=== PATIENT | female | born 1965 | race Hispanic/Latino ===

== ENCOUNTER 2019-07-31 14:06 | Emergency (ER) | payer MEDICARE ==
[~2019-07-31 14:06] MED LIST: CEFD300C3 PO; FERR325T22 PO; INSLAN SQ; INSU500V SQ; LISI40TA4 PO; PANT40TA25 PO; SUCR1ORA15 PO
[2019-07-31 14:50] LABS: INR 0.89 (0.85-1.15); PARTIAL THROMBOPLASTIN TIME 22.4 SEC (26.3-35.5); PROTHROMBIN TIME 9.4 SEC (9.6-11.6)
[2019-07-31 14:54] LABS: BASOPHILS % (AUTO) 0.7 % (0.0-5.0); EOSINOPHILS % (AUTO) 1.4 % (0.0-8.0); LYMPHOCYTES % (AUTO) 48.6 % (21.0-51.0); MEAN CORPUSCULAR HEMOGLOBIN 31.6 pg (27.0-33.0); MEAN CORPUSCULAR HGB CONC 33.3 g/dL (32.0-36.0); MEAN CORPUSCULAR VOLUME 94.7 fL (79-99); MONOCYTES % (AUTO) 9.1 % (3.0-13.0); PLATELET COUNT (AUTO) 338 K/uL (130-400); RED BLOOD CELL COUNT(AUTO) 4.12 MIL/uL (4.00-5.50); RED CELL DISTRIBUTION WIDTH 16.2 % (11.0-15.5); WHITE BLOOD COUNT (AUTO) 9.5 K/uL (4.8-10.8)
[2019-07-31 14:57] LABS: CREATININE 0.8 mg/dL (0.5-1.5); POTASSIUM 4.5 mmol/L (3.5-5.1)
[2019-07-31 15:00] LABS: APPEARANCE,URINE Clear (CLEAR); BILIRUBIN,URINE Negative (NEGATIVE); COLOR,URINE Yellow (YELLOW); GLUCOSE, URINE (UA) >=1000 mg/dL (NEGATIVE); KETONES,URINE Negative (NEGATIVE); LEUKOCYTE ESTERASE ,URINE Negative (NEGATIVE); NITRATE,URINE Negative (NEGATIVE); OCCULT BLOOD,URINE Small (NEGATIVE); PH,URINE 6.5 (5.0-8.0); PROTEIN,URINE Negative (NEGATIVE); UROBILINOGEN,URINE 0.2 mg/dL (0.2-1.0)
[2019-07-31 15:06] LABS: ALBUMIN 3.8 g/dL (3.5-5.0); BILIRUBIN,TOTAL 0.6 mg/dL (0.2-1.0); TOTAL PROTEIN, SERUM 8.3 g/dL (6.0-8.3)
[2019-07-31 15:11] LABS: BACTERIA,URINE Rare /HPF (None Seen); MUCUS,URINE Few LPF (None Seen); SQUAMOUS EPITHELIAL CELL,UR Few /HPF (0-2)
[2019-07-31 15:23] LABS: AMYLASE 59 U/L (25-115); CREATINE KINASE, TOTAL 88 U/L (21-232)
[2019-07-31] MEDS ORDERED: TRAMADOL HCL 50 MG TABLET ONE (16:37)
[2019-07-31] MEDS ORDERED: TAMSULOSIN HCL 0.4 MG CAP.ER.24H ONE (16:37)
[2019-07-31] MEDS ORDERED: KETOROLAC TROMETHAMINE 30MG/ML ONE (16:37)
[2019-07-31] MEDS ORDERED: SODIUM CHLORIDE 0.9% 1000ML 1,000 ML IV ONE (16:38)
== END 2019-07-31 18:07 | disposition home or self-care (01) ==
LOC: EDH 14:06
DX: N20.1 Calculus of ureter (principal); E11.65 Type 2 diabetes mellitus with hyperglycemia; I10 Essential (primary) hypertension; Z98.890 Other specified postprocedural states
CPT/HCPCS: 36415; 71045; 74176; 80053; 81001; 82150; 82550; 83690; 84484; 85025; 85610; 85730; 93005; 96361; 96374; 99285; J1885; J7030

== ENCOUNTER 2020-01-20 00:29 | Inpatient (IN) | payer MEDICARE ==
[~2020-01-20] VITALS: Ht 149.9 cm; Wt 52.9 kg
[~2020-01-20 00:29] MED LIST changes: -PANT40TA25 PO; +PANT40TA55 PO
[2020-01-20] MEDS ORDERED: ACETAMINOPHEN EXTRA STRENGTH 500 MG TABLET ONE (01:10)
[2020-01-20] MEDS ORDERED: ONDANSETRON HCL 4 MG/2 ML VIAL ONE (01:10)
[2020-01-20 01:16] LABS: BASOPHILS % (AUTO) 0.7 % (0.0-5.0); HEMATOCRIT 42.1 % (36-48); LYMPHOCYTES % (AUTO) 7.6 % (21.0-51.0); MEAN CORPUSCULAR HEMOGLOBIN 33.2 pg (27.0-33.0); MEAN CORPUSCULAR VOLUME 97.7 fL (79-99); MONOCYTES % (AUTO) 9.6 % (3.0-13.0); NEUTROPHILS % (AUTO) 81.2 % (40.0-77.0); NUCLEATED RED BLOOD CELLS 0.8 % (0.0-0.19); PLATELET COUNT (AUTO) 126 K/uL (130-400); RED BLOOD CELL COUNT(AUTO) 4.31 MIL/uL (4.00-5.50); RED CELL DISTRIBUTION WIDTH 12.6 % (11.0-15.5); WHITE BLOOD COUNT (AUTO) 22.8 K/uL (4.8-10.8)
[2020-01-20 01:25] LABS: INR 0.88 (0.85-1.15); PROTHROMBIN TIME 9.6 SEC (9.6-11.6)
[2020-01-20 01:36] LABS: ABG BASE EXCESS -13.7 mmol/L (-2.0-3.0); ABG HCO3 9.6 mmol/L (21.0-28.0); ABG OXYGEN SATURATION 96.3 % (95.0-99.0); ABG PCO2 19 mmHg (32-45)
[2020-01-20 02:13] LABS: ALBUMIN 1.9 g/dL (3.5-5.0); BILIRUBIN,TOTAL 0.7 mg/dL (0.2-1.0); CREATININE 1.1 mg/dL (0.5-1.5); TOTAL PROTEIN, SERUM 6.4 g/dL (6.0-8.3)
[2020-01-20] MEDS ORDERED: SODIUM BICARB 50MEQ 50ML VIAL ONE ×2 (02:24→04:49)
[2020-01-20] MEDS ORDERED: METOCLOPRAMIDE 10 MG/2 ML VIAL ONE (02:31)
[2020-01-20] MEDS ORDERED: ZOSYN 3.375GM+NS 50ML 50 ML IV ONE (02:36)
[2020-01-20] MEDS ORDERED: SODIUM CHLORIDE 0.9% 100 ML IV ONE (02:37)
[2020-01-20 02:39] LABS: APPEARANCE,URINE Clear (CLEAR); BILIRUBIN,URINE Negative (NEGATIVE); COLOR,URINE Yellow (YELLOW); GLUCOSE, URINE (UA) >=1000 mg/dL (NEGATIVE); KETONES,URINE >=160 mg/dL (NEGATIVE); LEUKOCYTE ESTERASE ,URINE Small (NEGATIVE); NITRATE,URINE Negative (NEGATIVE); OCCULT BLOOD,URINE Small (NEGATIVE); PH,URINE 5.5 (5.0-8.0); PROTEIN,URINE POS 1+ mg/dL (NEGATIVE)
[2020-01-20] MEDS ORDERED: INSULIN HUMULIN R 100 UNIT/ML 3ML ONE (02:39)
[2020-01-20] MEDS ORDERED: IOHEXOL-350 75 ML VIAL IV ONE (02:49)
[2020-01-20 03:02] LABS: BACTERIA,URINE Many /HPF (None Seen); MUCUS,URINE Rare LPF (None Seen); RBC,URINE 0-1 /HPF (0-1); SQUAMOUS EPITHELIAL CELL,UR 0-2 /HPF (0-2)
[2020-01-20] MEDS ORDERED: SODIUM CHLORIDE 0.9% 50 ML IV ONE ×2 (05:04→20:51)
[2020-01-20 05:24] LABS: ABG BASE EXCESS -11.3 mmol/L (-2.0-3.0); ABG HCO3 12.2 mmol/L (21.0-28.0); ABG OXYGEN SATURATION 94.1 % (95.0-99.0); ABG PCO2 23 mmHg (32-45)
[2020-01-20 05:51] LABS: CREATININE 1.5 mg/dL (0.5-1.5); POTASSIUM 3.8 mmol/L (3.5-5.1)
[2020-01-20 05:53] LABS: BILIRUBIN,TOTAL 0.8 mg/dL (0.2-1.0); TOTAL PROTEIN, SERUM 6.9 g/dL (6.0-8.3)
[2020-01-20] MEDS ORDERED: ONDANSETRON HCL 4 MG/2 ML VIAL IV PRN (06:00)
[2020-01-20] MEDS: CEFTRIAXONE SODIUM 1 GM IVP SCH ×2 (07:15→19:15)
[2020-01-20] MEDS ORDERED: DEXTROSE 5 %-0.45 % NACL 1,000 ML IV ONE (08:23)
[2020-01-20] MEDS: FAMOTIDINE/PF 20 MG/2 ML VIAL IV SCH ×2 (09:00→21:00)
[2020-01-20] MEDS ORDERED: D5W-1/2 NS/20MEQ KCL 1,000 ML IV SCH (09:45)
[2020-01-20 10:06] LABS: CREATININE 1.2 mg/dL (0.5-1.5); POTASSIUM 3.4 mmol/L (3.5-5.1)
[2020-01-20] MEDS ORDERED: FAMOTIDINE/PF 20 MG/2 ML VIAL IV ONE (16:32)
[2020-01-20 18:53] LABS: CREATININE 0.9 mg/dL (0.5-1.5)
[2020-01-20] MEDS ORDERED: CEFTRIAXONE SODIUM 1 GM ONE (20:49)
[2020-01-20] MEDS ORDERED: ACETAMINOPHEN 325 MG TAB ONE (21:20)
[2020-01-21] MEDS ORDERED: POTASSIUM CHLORIDE 20MEQ/100ML 100 ML IV ONE ×2 (01:33→12:11)
[2020-01-21 02:51] LABS: CREATININE 0.8 mg/dL (0.5-1.5)
[2020-01-21] MEDS: CEFTRIAXONE SODIUM 1 GM IVP SCH ×2 (07:15→19:15)
[2020-01-21 07:22] LABS: CREATININE 0.8 mg/dL (0.5-1.5); POTASSIUM 4.1 mmol/L (3.5-5.1)
[2020-01-21] MEDS: FAMOTIDINE/PF 20 MG/2 ML VIAL IV SCH ×2 (09:00→21:00)
[2020-01-21] MEDS ORDERED: CEFTRIAXONE SODIUM 1 GM ONE ×2 (09:27→21:39)
[2020-01-21] MEDS ORDERED: SODIUM CHLORIDE 0.9% 100 ML IV ONE (09:28)
[2020-01-21] MEDS ORDERED: DEXTROSE 5 %-0.45 % NACL 1,000 ML IV ONE (12:07)
[2020-01-21] MEDS: DEXTROSE 5%-LACTATED RINGERS 1,000 ML IV SCH ×2 (12:45→19:25)
[2020-01-21 13:18] LABS: ABG BASE EXCESS -7.3 mmol/L (-2.0-3.0); ABG HCO3 14.5 mmol/L (21.0-28.0); ABG OXYGEN SATURATION 96.7 % (95.0-99.0); ABG PCO2 22 mmHg (32-45)
[2020-01-21 13:19] LABS: BASOPHILS % (AUTO) 0.3 % (0.0-5.0); EOSINOPHILS % (AUTO) 0.1 % (0.0-8.0); HEMATOCRIT 32.4 % (36-48); LYMPHOCYTES % (AUTO) 8.7 % (21.0-51.0); MEAN CORPUSCULAR HEMOGLOBIN 32.4 pg (27.0-33.0); MEAN CORPUSCULAR HGB CONC 33.6 g/dL (32.0-36.0); MEAN CORPUSCULAR VOLUME 96.4 fL (79-99); MONOCYTES % (AUTO) 8.2 % (3.0-13.0); NEUTROPHILS % (AUTO) 81.7 % (40.0-77.0); NUCLEATED RED BLOOD CELLS 0.6 % (0.0-0.19); PLATELET COUNT (AUTO) 111 K/uL (130-400); RED BLOOD CELL COUNT(AUTO) 3.36 MIL/uL (4.00-5.50); RED CELL DISTRIBUTION WIDTH 13.2 % (11.0-15.5); WHITE BLOOD COUNT (AUTO) 23.3 K/uL (4.8-10.8)
[2020-01-21] MEDS ORDERED: DEXTROSE 5%-LACTATED RINGERS 1,000 ML IV ONE (15:20)
[2020-01-21] MEDS ORDERED: ZOSYN 3.375GM+NS 50ML 50 ML IV ONE (15:27)
--- NOTE | 2020-01-21 17:03 | NUR ---
INITIAL SW spoke to patient's son, Sonny Pratt, [phone]. Patient lives with son and daughter. She has no home health but has [facility] with [facility] 28 hours a week. Son is provider. DME: glucometer(uses insulin), BPM, shower chair. Patient needs help with ADL's and does not drive. Family assists. PCP is Dr. Smith Hameed. Pharmacy is [facility] in [place]. DCP is home. Addendum: 01/21/20 at 1705 by NEDA RAJAN SS Amended: Links added.
[2020-01-21 20:19] LABS: CREATININE 0.9 mg/dL (0.5-1.5); POTASSIUM 3.6 mmol/L (3.5-5.1)
[2020-01-21] MEDS: ZOSYN 3.375GM+NS 50ML 50 ML IV SCH (21:00)
[2020-01-21] MEDS ORDERED: ACETAMINOPHEN 325 MG TAB ONE (21:39)
[2020-01-21] MEDS ORDERED: FAMOTIDINE/PF 20 MG/2 ML VIAL IV ONE (21:40)
[2020-01-21] MEDS ORDERED: SODIUM CHLORIDE 0.9% 50 ML IV ONE (21:42)
[2020-01-22] VITALS (7 sets, daily range): BP systolic 122–135; BP diastolic 54–68
--- NOTE | 2020-01-22 00:30 | NUR ---
pt states she is anxious about getting covid ,and that is all she thinks all day she wants something for sleep pt states she has not slept in 3 days and that if she gets something for sleep, her sugars will be controlled dr. rojas pagenicole
[2020-01-22 01:06] LABS: POTASSIUM 3.1 mmol/L (3.5-5.1)
[2020-01-22] MEDS ORDERED: POTASSIUM CHLORIDE 10MEQ/100ML 100 ML IV ONE (01:39)
[2020-01-22] MEDS ORDERED: POTASSIUM CHLORIDE 20MEQ/100ML 100 ML IV ONE (01:39)
[2020-01-22] MEDS ORDERED: DEXTROSE 5%-LACTATED RINGERS 1,000 ML IV ONE (01:49)
[2020-01-22] MEDS: DEXTROSE 5%-LACTATED RINGERS 1,000 ML IV SCH ×4 (02:05→22:05)
[2020-01-22] MEDS: ZOSYN 3.375GM+NS 50ML 50 ML IV SCH ×3 (05:00→22:45)
[2020-01-22 05:54] LABS: BASOPHILS % (AUTO) 0.3 % (0.0-5.0); EOSINOPHILS % (AUTO) 0.2 % (0.0-8.0); LYMPHOCYTES % (AUTO) 8.3 % (21.0-51.0); MEAN CORPUSCULAR HEMOGLOBIN 33.2 pg (27.0-33.0); MEAN CORPUSCULAR HGB CONC 35.1 g/dL (32.0-36.0); MEAN CORPUSCULAR VOLUME 94.6 fL (79-99); MONOCYTES % (AUTO) 7.4 % (3.0-13.0); NUCLEATED RED BLOOD CELLS 0.3 % (0.0-0.19); PLATELET COUNT (AUTO) 148 K/uL (130-400); RED BLOOD CELL COUNT(AUTO) 3.91 MIL/uL (4.00-5.50); RED CELL DISTRIBUTION WIDTH 13.5 % (11.0-15.5); WHITE BLOOD COUNT (AUTO) 24.6 K/uL (4.8-10.8)
[2020-01-22] MEDS: CEFTRIAXONE SODIUM 1 GM IVP SCH ×2 (07:15→22:37)
[2020-01-22 08:46] LABS: BILIRUBIN,TOTAL 0.6 mg/dL (0.2-1.0); POTASSIUM 4.2 mmol/L (3.5-5.1)
[2020-01-22] MEDS: FAMOTIDINE/PF 20 MG/2 ML VIAL IV SCH ×2 (09:00→22:37)
[2020-01-22 09:08] LABS: ALBUMIN 1.4 g/dL (3.5-5.0); CREATININE 0.7 mg/dL (0.5-1.5)
[2020-01-22] MEDS ORDERED: CEFTRIAXONE SODIUM 1 GM ONE (09:42)
[2020-01-22] MEDS ORDERED: FAMOTIDINE/PF 20 MG/2 ML VIAL IV ONE (09:43)
[2020-01-22 10:41] LABS: ABG BASE EXCESS -6.4 mmol/L (-2.0-3.0); ABG HCO3 15.3 mmol/L (21.0-28.0); ABG OXYGEN SATURATION 97.9 % (95.0-99.0); ABG PCO2 23 mmHg (32-45)
[2020-01-22] MEDS ORDERED: INSLAN SQ (11:15)
[2020-01-22] MEDS: 1/2 NORMAL SALINE + 20 MEQ KCL 1,000 ML IV SCH ×2 (11:15→21:15)
[2020-01-22] MEDS ORDERED: POTASSIUM CHLORIDE 10MEQ/100ML 100 ML IV PRN (11:30)
[2020-01-22 12:16] LABS: ALBUMIN 1.6 g/dL (3.5-5.0); BILIRUBIN,TOTAL 0.5 mg/dL (0.2-1.0); CREATININE 0.8 mg/dL (0.5-1.5); POTASSIUM 3.9 mmol/L (3.5-5.1); TOTAL PROTEIN, SERUM 5.8 g/dL (6.0-8.3)
--- NOTE | 2020-01-22 12:57 | NUR ---
PT WAS RECEIVED IN ROOM 1-B VIA STRETCHER FROM ER. PT IS AWAKE ALERT AND ORIENTED. AT PRESENT PT WAS CONNECTED TO [employer] AND REQUESTING SOMETHING TO EAT, PT WAS ADVISED THAT PATIENTS WITH DKA WERE NOT USUALLY FED. WILL AWAIT TO SEE HER ORDERS.
[2020-01-22 13:07] LABS: CREATININE 0.9 mg/dL (0.5-1.5); MAGNESIUM 1.9 mg/dL (1.80-2.40); POTASSIUM 3.5 mmol/L (3.5-5.1)
--- NOTE | 2020-01-22 13:30 | NUR ---
CARLY ROGER, DR. MCKEON, AND Cristo GEE WITH NURSE PRACTITIONERS MINH AND RACHEL, HAVE SEEN PATIENT AND ORDERS NOTED. PT STATES THAT SHE DIDN'T REALIZE THAT SO MANY DOCTORS WERE ON HER CASE. ORDERS WERE ADVISED TO PHYSICIANS AND WILL AWAIT FOR FURTHER ORDERS.
[2020-01-22] MEDS ORDERED: INSULIN GLARGINE 100 UNITS/ML 10 ML VIAL SQ ONE (15:55)
[2020-01-22] MEDS: INSULIN HUMULIN R 100 UNIT/ML 3ML SQ SCH ×2 (16:44→23:22)
[2020-01-22 16:46] LABS: CREATININE 0.9 mg/dL (0.5-1.5); MAGNESIUM 1.8 mg/dL (1.80-2.40); POTASSIUM 3.6 mmol/L (3.5-5.1)
--- NOTE | 2020-01-22 16:57 | NUR ---
PT HAD A HIGH BLOOD SUGAR AND WAS GIVEN INSULIN PER SLIDING SCALE ORDERED PER DR. LAUGHLIN AND THE ALREADY SCHEDULES INSULIN DOSE.
[2020-01-22] MEDS ORDERED: INSULIN HUMULIN R 100 UNIT/ML 3ML SQ SCH (17:00)
[2020-01-22 17:48] LABS: ABG BASE EXCESS -5.6 mmol/L (-2.0-3.0); ABG HCO3 16.1 mmol/L (21.0-28.0); ABG OXYGEN SATURATION 97.3 % (95.0-99.0); ABG PCO2 24 mmHg (32-45)
[2020-01-22] MEDS ORDERED: INSULIN GLARGINE 100 UNITS/ML 10 ML VIAL SQ SCH (18:30)
[2020-01-22] MEDS ORDERED: LIDOCAINE HCL-MPF 1% 2ML VIAL IV PRN (21:00)
[2020-01-22] MEDS ORDERED: MAGNESIUM 2GM PREMIX 50ML 50 ML IV PRN (21:00)
[2020-01-22] MEDS ORDERED: GLUCAGON 1MG KIT 1 MG ML IM PRN (21:00)
[2020-01-22] MEDS ORDERED: DEXTROSE 50%-WATER 50 ML DISP.SYRIN IV PRN (21:00)
[2020-01-22] MEDS ORDERED: POTASSIUM CHLORIDE 10% ELIXIR 20 MEQ/15 ML UDCUP PO PRN (21:00)
[2020-01-22] MEDS ORDERED: POTASSIUM CHLORIDE 20MEQ/100ML 100 ML IV PRN (21:00)
--- NOTE | 2020-01-22 21:00 | NUR ---
DOWNGRADE SPOKE TO DR SILVA UPDATED ON PATIENT CONDITION PT NO LONGER ON INSULIN DRIP AND TOLERATING PO AND ON SQ PER ENDOCRINOLOGY. ORDERS FOR POTASSIUM AND MAGNESIUM PROTOCOL. PATIENT DOWNGRADED TO MED/TELE STATUS
--- NOTE | 2020-01-22 23:40 | NUR ---
REPORT REPORT GIVEN TO RD MADERA
[2020-01-23] VITALS (9 sets, daily range): BP systolic 109–148; BP diastolic 53–77
[2020-01-23] MEDS: LORAZEPAM 1 MG TABLET PO PRN ×2 (01:25→21:33)
[2020-01-23 05:32] LABS: ABG HCO3 19.7 mmol/L (21.0-28.0); ABG OXYGEN SATURATION 97.2 % (95.0-99.0); ABG PCO2 27 mmHg (32-45)
[2020-01-23] MEDS: CEFTRIAXONE SODIUM 1 GM IVP SCH (06:06)
[2020-01-23] MEDS: ZOSYN 3.375GM+NS 50ML 50 ML IV SCH (06:06)
[2020-01-23] MEDS: INSULIN HUMULIN R 100 UNIT/ML 3ML SQ SCH ×7 (06:07→20:01)
[2020-01-23 06:23] LABS: HEMATOCRIT 31.8 % (36-48); MEAN CORPUSCULAR HEMOGLOBIN 32.7 pg (27.0-33.0); MEAN CORPUSCULAR HGB CONC 35.5 g/dL (32.0-36.0); MEAN CORPUSCULAR VOLUME 91.9 fL (79-99); NUCLEATED RED BLOOD CELLS 0.2 % (0.0-0.19); RED BLOOD CELL COUNT(AUTO) 3.46 MIL/uL (4.00-5.50); RED CELL DISTRIBUTION WIDTH 12.8 % (11.0-15.5); WHITE BLOOD COUNT (AUTO) 19.3 K/uL (4.8-10.8)
[2020-01-23 06:56] LABS: ALBUMIN 1.7 g/dL (3.5-5.0); BILIRUBIN,TOTAL 0.5 mg/dL (0.2-1.0); CREATININE 0.9 mg/dL (0.5-1.5); MAGNESIUM 1.8 mg/dL (1.80-2.40); PHOSPHORUS 2.4 mg/dL (2.5-4.9); POTASSIUM 3.2 mmol/L (3.5-5.1); THYROID STIMULATING HORMONE 0.57 uIU/mL (0.36-3.74); TOTAL PROTEIN, SERUM 5.7 g/dL (6.0-8.3); URIC ACID 2.8 mg/dL (2.6-7.2)
[2020-01-23] MEDS ORDERED: INSULIN HUMULIN R 100 UNIT/ML 3ML SQ SCH (07:30)
[2020-01-23] MEDS: INSULIN GLARGINE 100 UNITS/ML 10 ML VIAL SQ SCH (08:00)
--- NOTE | 2020-01-23 08:00 | NUR ---
DR. MAGALLANES HERE AND ORDERS NOTED. DR. SILVA HERE AND ORDERS FOR ANTIBIOTICS ACCORDING TO SENSITIVITY NOTED.
[2020-01-23] MEDS: FAMOTIDINE/PF 20 MG/2 ML VIAL IV SCH ×2 (10:36→20:02)
[2020-01-23] MEDS: LEVOFLOXACIN 500 MG TABLET PO SCH (10:40)
[2020-01-23] MEDS: FOLIC ACID/VITAMIN B COMP W-C 1 CAP TAB PO SCH (10:41)
[2020-01-23] MEDS: POTASSIUM CHLORIDE 20 MEQ ERTAB PO PRN ×2 (12:51→15:09)
[2020-01-23 19:54] LABS: APPEARANCE,URINE Cloudy (CLEAR); BILIRUBIN,URINE Negative (NEGATIVE); COLOR,URINE Yellow (YELLOW); GLUCOSE, URINE (UA) Negative (NEGATIVE); KETONES,URINE Negative (NEGATIVE); LEUKOCYTE ESTERASE ,URINE Large (NEGATIVE); NITRATE,URINE Negative (NEGATIVE); OCCULT BLOOD,URINE Trace (NEGATIVE); PH,URINE 7.5 (5.0-8.0); PROTEIN,URINE Negative (NEGATIVE); UROBILINOGEN,URINE 0.2 mg/dL (0.2-1.0)
[2020-01-23 19:57] LABS: SODIUM,URINE RANDOM 62 mmol/l (40-220)
--- NOTE | 2020-01-23 20:01 | NUR ---
HYPOGLYCEMIA Pt states she did not eat her food tray,blood sugar 66,pt states she does not feel good.[place] juice and snack given.
[2020-01-23 20:20] LABS: BACTERIA,URINE Few /HPF (None Seen); RBC,URINE 0-1 /HPF (0-1); YEAST,URINE BUDDING Few /HPF (None Seen)
[2020-01-23 20:21] LABS: SQUAMOUS EPITHELIAL CELL,UR Few /HPF (0-2)
--- NOTE | 2020-01-23 21:14 | NUR ---
ANXIETY Pt wants her sleeping pill,Ativan not available in the [facility],called pharmacy.
--- NOTE | 2020-01-23 21:17 | NUR ---
RECHECKED Blood sugar rechecked 114,pt states she feels better.
--- NOTE | 2020-01-23 21:36 | NUR ---
ATIVAN Pt awake,talking on the phone,medicated with Ativan as per request for c/o anxiety and unable to sleep on her own.
--- NOTE | 2020-01-24 02:36 | NUR ---
ASLEEP Pt sleeping,eyes closed.Respirations even and unlabored.No signs of hypoglycemia.
[2020-01-24 04:00] VITALS: BP 127/81
--- NOTE | 2020-01-24 04:22 | NUR ---
REST Pt cont to sleep,no distress noted.
--- NOTE | 2020-01-24 06:18 | NUR ---
MD Dr SILVA came to see pt.
[2020-01-24] MEDS: INSULIN HUMULIN R 100 UNIT/ML 3ML SQ SCH ×6 (06:54→21:16)
[2020-01-24 08:00] VITALS: BP 113/69
--- NOTE | 2020-01-24 08:00 | NUR ---
DR LIRA STUFFER HERE TO SEE PATIENT, LEFT PRESCRIPTION
[2020-01-24 08:04] LABS: HEMATOCRIT 31.8 % (36-48); MEAN CORPUSCULAR HEMOGLOBIN 32.6 pg (27.0-33.0); MEAN CORPUSCULAR HGB CONC 34.9 g/dL (32.0-36.0); MEAN CORPUSCULAR VOLUME 93.5 fL (79-99); PLATELET COUNT (AUTO) 215 K/uL (130-400); RED CELL DISTRIBUTION WIDTH 13.1 % (11.0-15.5); WHITE BLOOD COUNT (AUTO) 14.2 K/uL (4.8-10.8)
[2020-01-24 08:17] LABS: CREATININE 0.9 mg/dL (0.5-1.5); MAGNESIUM 1.9 mg/dL (1.80-2.40); PHOSPHORUS 2.4 mg/dL (2.5-4.9); POTASSIUM 3.8 mmol/L (3.5-5.1)
[2020-01-24] MEDS: FOLIC ACID/VITAMIN B COMP W-C 1 CAP TAB PO SCH (09:11)
[2020-01-24] MEDS: FAMOTIDINE/PF 20 MG/2 ML VIAL IV SCH ×2 (09:12→20:54)
[2020-01-24] MEDS: LEVOFLOXACIN 500 MG TABLET PO SCH (09:15)
[2020-01-24] MEDS: INSULIN GLARGINE 100 UNITS/ML 10 ML VIAL SQ SCH (09:18)
[2020-01-24 09:23] LABS: EOSINOPHILS % (MANUAL) 1 % (1-6); LYMPHOCYTES % (MANUAL) 19 % (22-44); MAN.DIFF COMMENT-IMPRESSION MANUAL DIFFERENTIAL; MONOCYTES % (MANUAL) 6 % (2-9); PLATELET MORPHOLOGY COMMENT ADEQUATE; SEGMENTED NEUTROPHILS % 74 % (40-70)
[2020-01-24 12:00] VITALS: BP 108/61
--- NOTE | 2020-01-24 12:30 | NUR ---
DARRELL MCCARTHY DC'Chalo [id number] EMPTY Addendum: 01/24/20 at 1241 by AMIE YI RN 700CC URINE EMPTY
--- NOTE | 2020-01-24 13:30 | NUR ---
Marleny LIRA VISITED
[2020-01-24 16:00] VITALS: BP 122/61
[2020-01-24] MEDS ORDERED: INSULIN HUMULIN R 100 UNIT/ML 3ML SQ SCH (17:00)
[2020-01-24] MEDS: LORAZEPAM 1 MG TABLET PO PRN (18:42)
[2020-01-24 20:30] VITALS: BP 108/58
[2020-01-25] VITALS: BP 146/81
[2020-01-25 04:00] VITALS: BP 119/63
[2020-01-25 06:16] LABS: BASOPHILS % (AUTO) 0.4 % (0.0-5.0); EOSINOPHILS % (AUTO) 0.5 % (0.0-8.0); HEMATOCRIT 32.2 % (36-48); LYMPHOCYTES % (AUTO) 22.8 % (21.0-51.0); MEAN CORPUSCULAR HEMOGLOBIN 32.9 pg (27.0-33.0); MEAN CORPUSCULAR HGB CONC 34.8 g/dL (32.0-36.0); MEAN CORPUSCULAR VOLUME 94.7 fL (79-99); MONOCYTES % (AUTO) 9.4 % (3.0-13.0); NEUTROPHILS % (AUTO) 65.3 % (40.0-77.0); PLATELET COUNT (AUTO) 297 K/uL (130-400); RED CELL DISTRIBUTION WIDTH 13.2 % (11.0-15.5); WHITE BLOOD COUNT (AUTO) 13.9 K/uL (4.8-10.8)
[2020-01-25 06:38] LABS: BILIRUBIN,TOTAL 0.5 mg/dL (0.2-1.0); CREATININE 0.9 mg/dL (0.5-1.5); MAGNESIUM 1.9 mg/dL (1.80-2.40); PHOSPHORUS 3.5 mg/dL (2.5-4.9); POTASSIUM 3.8 mmol/L (3.5-5.1); TOTAL PROTEIN, SERUM 6.2 g/dL (6.0-8.3)
[2020-01-25] MEDS: INSULIN HUMULIN R 100 UNIT/ML 3ML SQ SCH ×2 (06:50→12:27)
[2020-01-25 07:30] VITALS: BP 136/75
[2020-01-25] MEDS ORDERED: INSULIN HUMULIN R 100 UNIT/ML 3ML SQ SCH (08:00)
[2020-01-25] MEDS ORDERED: INSULIN GLARGINE 100 UNITS/ML 10 ML VIAL SQ SCH ×2 (08:00)
[2020-01-25] MEDS: LEVOFLOXACIN 500 MG TABLET PO SCH (09:32)
[2020-01-25] MEDS: FOLIC ACID/VITAMIN B COMP W-C 1 CAP TAB PO SCH (09:32)
[2020-01-25] MEDS: FAMOTIDINE/PF 20 MG/2 ML VIAL IV SCH (09:32)
[2020-01-25 11:00] VITALS: BP 124/66
[2020-01-25] MEDS ORDERED: LEVO500T2 PO (11:17)
== END 2020-01-25 12:55 | disposition home or self-care (01) | DRG 871 ==
LOC: EDH 00:29 → EDHIP 05:51 → DAHIP 01-22 14:11 → 3DH 01-25 01:20
PROVIDERS: ADMIT Hospitalist; ATTEND Hospitalist
DX: A41.50 Gram-negative sepsis, unspecified (principal); E11.10 Type 2 diabetes mellitus with ketoacidosis without coma; N39.0 Urinary tract infection, site not specified; K86.1 Other chronic pancreatitis; E87.1 Hypo-osmolality and hyponatremia; N17.9 Acute kidney failure, unspecified; E86.0 Dehydration; D64.9 Anemia, unspecified; B96.20 Unspecified Escherichia coli [E. coli] as the cause of diseases classified elsewhere; E78.5 Hyperlipidemia, unspecified; N18.9 Chronic kidney disease, unspecified; E11.22 Type 2 diabetes mellitus with diabetic chronic kidney disease; I12.9 Hypertensive chronic kidney disease with stage 1 through stage 4 chronic kidney disease, or unspecified chronic kidney disease; Z20.828 Contact with and (suspected) exposure to other viral communicable diseases; Z79.4 Long term (current) use of insulin; Z83.3 Family history of diabetes mellitus; Z80.9 Family history of malignant neoplasm, unspecified; Z82.0 Family history of epilepsy and other diseases of the nervous system; Z84.1 Family history of disorders of kidney and ureter; Z82.49 Family history of ischemic heart disease and other diseases of the circulatory system
CPT/HCPCS: 36415; 36600; 71045; 74177; 80048; 80053; 81001; 82010; 82150; 82550; 82803; 82948; 83605; 83690; 83735; 83935; 84100; 84145; 84300; 84443; 84484; 84550; 85025; 85027; 85610; 85730; 87040; 87077; 87088; 87186; 93005; 99291; G0378; J0696; J1815; J2405; J2543; J2765; J3475; J3480; J3490; J7042; Q9967

== ENCOUNTER 2022-07-15 11:07 | Inpatient (IN) | payer OTHER, MEDICARE ==
[2022-07-15] VITALS (12 sets, daily range): BP systolic 134–165; BP diastolic 61–87
[~2022-07-15] VITALS: Ht 147.3 cm; Wt 45.4 kg
[~2022-07-15 11:07] MED LIST changes: -CEFD300C3 PO; -FERR325T22 PO; -INSLAN SQ; -INSU500V SQ; +LEVO500T2 PO; -LISI40TA4 PO; +LISI40TA9 PO; -SUCR1ORA15 PO
[2022-07-15] MEDS ORDERED: 0.9%NACL 1000ML 1,000 ML IV ONE ×2 (11:31→12:00)
[2022-07-15] MEDS ORDERED: MORPHINE 4 MG SYG ONE (11:31)
[2022-07-15] MEDS ORDERED: ONDANSETRON 4MG INJ ONE (11:31)
[2022-07-15 11:37] LABS: BASOPHILS % (AUTO) 0.3 % (0.0-5.0); LYMPHOCYTES % (AUTO) 10.2 % (21.0-51.0); MEAN CORPUSCULAR HEMOGLOBIN 33.1 pg (27.0-33.0); MEAN CORPUSCULAR VOLUME 97.5 fL (79-99); MONOCYTES % (AUTO) 8.1 % (3.0-13.0); NEUTROPHILS % (AUTO) 80.3 % (40.0-77.0); NUCLEATED RED BLOOD CELLS 0.2 % (0.0-0.19); PLATELET COUNT (AUTO) 319 K/uL (130-400); RED BLOOD CELL COUNT(AUTO) 4.41 MIL/uL (4.00-5.50); RED CELL DISTRIBUTION WIDTH 12.7 % (11.0-15.5); WHITE BLOOD COUNT (AUTO) 15.4 K/uL (4.8-10.8)
[2022-07-15 11:48] LABS: ABG BASE EXCESS -10.7 mmol/L (-2.0-3.0); ABG HCO3 13.8 mmol/L (21.0-28.0); ABG OXYGEN SATURATION 97.3 % (95.0-99.0); ABG PCO2 28 mmHg (32-45)
[2022-07-15 11:59] LABS: ALBUMIN 3.4 g/dL (3.5-5.0); CREATININE 1.4 mg/dL (0.5-1.5); POTASSIUM 4.7 mmol/L (3.5-5.1)
[2022-07-15] MEDS ORDERED: INSULIN HUMULIN R 100 UNIT/ML 3ML IV ONE (12:30)
[2022-07-15 12:54] LABS: APPEARANCE,URINE CLOUDY (CLEAR); BILIRUBIN,URINE NEGATIVE (NEGATIVE); COLOR,URINE LIGHT-YELLOW (YELLOW); GLUCOSE, URINE (UA) >=1000 mg/dL (NEGATIVE); KETONES,URINE 100 mg/dL (NEGATIVE); LEUKOCYTE ESTERASE ,URINE 250 Leu/uL (NEGATIVE); NITRATE,URINE NEGATIVE (NEGATIVE); OCCULT BLOOD,URINE SMALL (NEGATIVE); PH,URINE 5.5 (5.0-8.0); PROTEIN,URINE NEGATIVE (NEGATIVE); UROBILINOGEN,URINE 0.2 mg/dL (0.2-1.0)
[2022-07-15 13:04] LABS: MUCUS,URINE RARE LPF (None Seen); SQUAMOUS EPITHELIAL CELL,UR MOD /HPF (0-2); WBC,URINE 51-100 /HPF (0-1)
[2022-07-15 13:07] LABS: BACTERIA,URINE Moderate /HPF (None Seen)
[2022-07-15] MEDS ORDERED: PANTOPRAZOLE 40 MG/VIAL IVP ONE (14:00)
[2022-07-15] MEDS ORDERED: ACETAMINOPHEN 325 MG TAB PO PRN ×2 (16:00)
[2022-07-15] MEDS ORDERED: D5W-1/2 NS/20MEQ KCL 1,000 ML IV SCH (16:00)
[2022-07-15] MEDS ORDERED: MAGNESIUM 2GM PREMIX 50ML 50 ML IV SCH (16:00)
[2022-07-15] MEDS ORDERED: INSULIN REGULAR, HUMAN 3ML 100 UNIT in 0.9%NACL 100ML 100 ML IV SCH ×2 (16:00)
[2022-07-15 16:21] LABS: CREATININE 0.9 mg/dL (0.5-1.5); POTASSIUM 4.8 mmol/L (3.5-5.1)
[2022-07-15] MEDS ORDERED: CEFTRIAXONE 1G VIAL IVP ONE (16:30)
[2022-07-15] MEDS: 0.9%NACL 1000ML 1,000 ML IV SCH ×2 (16:37→18:55)
[2022-07-15 16:55] LABS: PROTEIN,URINE RANDOM 24.2 mg/dL (0-11.9)
[2022-07-15] MEDS: FAMOTIDINE 20MG VIAL IV SCH (16:59)
[2022-07-15] MEDS: HYDROMORPHONE 1 MG INJ IVP PRN ×2 (17:27→21:19)
[2022-07-15] MEDS: ONDANSETRON 4MG INJ IV PRN (19:26)
[2022-07-15 20:17] LABS: CREATININE 0.8 mg/dL (0.5-1.5); POTASSIUM 4.1 mmol/L (3.5-5.1)
[2022-07-15 22:46] LABS: ABG BASE EXCESS -12.9 mmol/L (-2.0-3.0); ABG HCO3 11.9 mmol/L (21.0-28.0); ABG PCO2 25 mmHg (32-45)
[2022-07-15] MEDS ORDERED: POTASSIUM CHLORIDE 20MEQ/100ML 100 ML IV ONE (22:47)
[2022-07-15] MEDS ORDERED: SODIUM BICARB 8.4% 50ML SYRING 150 MEQ in DEXTROSE 5%-WATER 1,000 ML IVP SCH (23:30)
[2022-07-15] MEDS ORDERED: SODIUM BICARB 50MEQ 50ML VIAL 150 ML ONE (23:37)
[2022-07-16] VITALS (26 sets, daily range): BP systolic 128–164; BP diastolic 61–97
[2022-07-16 00:17] LABS: CREATININE 0.9 mg/dL (0.5-1.5); POTASSIUM 4.2 mmol/L (3.5-5.1)
[2022-07-16] MEDS: HYDROMORPHONE 1 MG INJ IVP PRN (02:41)
[2022-07-16 04:07] LABS: CREATININE 0.8 mg/dL (0.5-1.5); POTASSIUM 3.5 mmol/L (3.5-5.1)
[2022-07-16 04:15] LABS: ABG HCO3 20.1 mmol/L (21.0-28.0); ABG PCO2 33 mmHg (32-45)
[2022-07-16] MEDS: POTASSIUM CHLORIDE 10MEQ/100ML 100 ML IV PRN ×4 (04:42→17:50)
[2022-07-16 05:05] LABS: HEMATOCRIT 30.9 % (36-48); MEAN CORPUSCULAR HEMOGLOBIN 33.2 pg (27.0-33.0); MEAN CORPUSCULAR HGB CONC 34.3 g/dL (32.0-36.0); MEAN CORPUSCULAR VOLUME 96.9 fL (79-99); NUCLEATED RED BLOOD CELLS 0.5 % (0.0-0.19); RED BLOOD CELL COUNT(AUTO) 3.19 MIL/uL (4.00-5.50); RED CELL DISTRIBUTION WIDTH 12.8 % (11.0-15.5)
[2022-07-16] MEDS: ONDANSETRON 4MG INJ IV PRN ×3 (05:29→18:44)
[2022-07-16] MEDS ORDERED: INSULIN GLARGINE 100 UNITS/ML 10 ML VIAL SQ SCH ×2 (07:30→10:35)
[2022-07-16 08:00] LABS: CREATININE 0.8 mg/dL (0.5-1.5); POTASSIUM 3.6 mmol/L (3.5-5.1)
[2022-07-16] MEDS: CEFTRIAXONE 2GM VIAL IVPB SCH (08:06)
[2022-07-16] MEDS: ENOXAPARIN SODIUM 30 MG/0.3 ML SQ SCH (08:06)
[2022-07-16] MEDS: FAMOTIDINE 20MG VIAL IV SCH (08:06)
[2022-07-16] MEDS: HYDROMORPHONE 0.5 MG SYG (0.5MG/0.5ML) IVP PRN ×2 (12:53→18:44)
[2022-07-16 13:20] LABS: CREATININE 0.8 mg/dL (0.5-1.5); POTASSIUM 3.3 mmol/L (3.5-5.1)
[2022-07-16 17:11] LABS: CREATININE 0.7 mg/dL (0.5-1.5); POTASSIUM 3.3 mmol/L (3.5-5.1)
[2022-07-16] MEDS: 0.9%NACL 1000ML 1,000 ML IV SCH (18:44)
[2022-07-16] MEDS ORDERED: POTASSIUM CHLORIDE 10% ELIXIR 20 MEQ/15 ML UDCUP PO PRN (20:30)
[2022-07-16] MEDS ORDERED: KCL 20 MEQ ERTAB PO PRN (20:30)
[2022-07-16] MEDS: INSULIN GLARGINE 100 UNITS/ML 10 ML VIAL SQ SCH (20:31)
[2022-07-16] MEDS: INSULIN HUMULIN R 100 UNIT/ML 3ML SQ SCH (20:32)
[2022-07-16] MEDS ORDERED: KCL 20 MEQ ERTAB PO ONE (20:35)
[2022-07-16] MEDS: KCL 20 MEQ ERTAB PO PRN (22:50)
[2022-07-17] VITALS: BP 138/70
[2022-07-17] MEDS: ONDANSETRON 4MG INJ IV PRN ×3 (00:42→13:06)
[2022-07-17] MEDS: HYDROMORPHONE 0.5 MG SYG (0.5MG/0.5ML) IVP PRN ×2 (00:42→06:39)
[2022-07-17] MEDS: KCL 20 MEQ ERTAB PO PRN (00:56)
[2022-07-17 04:00] VITALS: BP 157/72
[2022-07-17] MEDS: 0.9%NACL 1000ML 1,000 ML IV SCH ×2 (05:09→13:16)
[2022-07-17] MEDS: INSULIN GLARGINE 100 UNITS/ML 10 ML VIAL SQ SCH (06:32)
[2022-07-17] MEDS: INSULIN HUMULIN R 100 UNIT/ML 3ML SQ SCH ×3 (06:33→17:19)
[2022-07-17 08:00] VITALS: BP 134/70
[2022-07-17] MEDS: CEFTRIAXONE 2GM VIAL IVPB SCH (08:21)
[2022-07-17] MEDS: FAMOTIDINE 20MG VIAL IV SCH (08:21)
[2022-07-17] MEDS: ENOXAPARIN SODIUM 30 MG/0.3 ML SQ SCH (08:21)
[2022-07-17 12:00] VITALS: BP 130/60
[2022-07-17] MEDS: HYDROMORPHONE 1 MG INJ IVP PRN (13:15)
[2022-07-17] MEDS ORDERED: INSU100I15 SQ (15:42)
[2022-07-17] MEDS ORDERED: LISI5TAB21 PO (15:42)
[2022-07-17] MEDS ORDERED: INSLAN SQ (15:42)
[2022-07-17] MEDS ORDERED: CEPH500B PO (15:42)
[2022-07-17 15:43] LABS: BASOPHILS % (AUTO) 0.5 % (0.0-5.0); EOSINOPHILS % (AUTO) 0.7 % (0.0-8.0); LYMPHOCYTES % (AUTO) 34.4 % (21.0-51.0); MEAN CORPUSCULAR HEMOGLOBIN 32.7 pg (27.0-33.0); MEAN CORPUSCULAR HGB CONC 34.2 g/dL (32.0-36.0); MEAN CORPUSCULAR VOLUME 95.7 fL (79-99); MONOCYTES % (AUTO) 13.3 % (3.0-13.0); NEUTROPHILS % (AUTO) 49.6 % (40.0-77.0); NUCLEATED RED BLOOD CELLS 0.2 % (0.0-0.19); PLATELET COUNT (AUTO) 252 K/uL (130-400); RED BLOOD CELL COUNT(AUTO) 3.24 MIL/uL (4.00-5.50); RED CELL DISTRIBUTION WIDTH 12.9 % (11.0-15.5)
[2022-07-17 15:51] LABS: CREATININE 0.8 mg/dL (0.5-1.5); POTASSIUM 3.9 mmol/L (3.5-5.1)
[2022-07-17 16:00] VITALS: BP 127/65
== END 2022-07-17 18:40 | disposition home or self-care (01) | DRG 637 ==
LOC: EDH 11:07 → EDHIP 15:44 → 2BH 18:45 → 3AH 07-16 21:51
PROVIDERS: ADMIT Internal Medicine; ATTEND Internal Medicine
DX: E11.10 Type 2 diabetes mellitus with ketoacidosis without coma (principal); R65.11 Systemic inflammatory response syndrome (SIRS) of non-infectious origin with acute organ dysfunction; E87.1 Hypo-osmolality and hyponatremia; N17.9 Acute kidney failure, unspecified; N30.00 Acute cystitis without hematuria; E11.22 Type 2 diabetes mellitus with diabetic chronic kidney disease; E86.0 Dehydration; N18.9 Chronic kidney disease, unspecified; I12.9 Hypertensive chronic kidney disease with stage 1 through stage 4 chronic kidney disease, or unspecified chronic kidney disease; E87.8 Other disorders of electrolyte and fluid balance, not elsewhere classified; B96.20 Unspecified Escherichia coli [E. coli] as the cause of diseases classified elsewhere; E86.1 Hypovolemia; Z91.199 Patient's noncompliance with other medical treatment and regimen due to unspecified reason; Z90.410 Acquired total absence of pancreas; Z90.49 Acquired absence of other specified parts of digestive tract
CPT/HCPCS: 36415; 36600; 74176; 80048; 80053; 81001; 82010; 82435; 82570; 82803; 82947; 82948; 83605; 83690; 83735; 83930; 83935; 84132; 84145; 84156; 84295; 84300; 85018; 85025; 85027; 87040; 87077; 87088; 87186; 93005; C9113; G0378; J0696; J1170; J1650; J1815; J2270; J2405; J3475; J3480; J3490; J7030; J7070

== ENCOUNTER → 2022-07-29 | Outpatient (CLI) | payer OTHER, MEDICARE ==
[~2022-07-29] MED LIST changes: +CEPH500B PO; +INSLAN SQ; +INSU100I15 SQ; -LEVO500T2 PO; -LISI40TA9 PO; +LISI5TAB21 PO; -PANT40TA55 PO
[2022-07-29 16:29] LABS: ALBUMIN 3.4 g/dL (3.5-5.0); CREATININE 0.9 mg/dL (0.5-1.5); POTASSIUM 4.8 mmol/L (3.5-5.1); TOTAL PROTEIN, SERUM 8.1 g/dL (6.0-8.3)
== END | disposition home or self-care (01) ==
LOC: LAB 13:33
PROVIDERS: ATTEND Student in an Organized Health Care Education/Training Program
DX: I10 Essential (primary) hypertension (principal)
CPT/HCPCS: 36415; 80053

== ENCOUNTER → 2022-08-05 | Outpatient (CLI) | payer OTHER, MEDICARE ==
[~2022-08-05] MED LIST changes: +IOHEXOL 350 MG/ML 100ML INFUS..BTL IV ONE; +METOPROLOL TARTRATE 1 MG/ML 5ML VIAL IV ONE
== END | disposition home or self-care (01) ==
LOC: RAH 08:27
PROVIDERS: ATTEND Student in an Organized Health Care Education/Training Program
DX: M47.815 Spondylosis without myelopathy or radiculopathy, thoracolumbar region (principal); R07.9 Chest pain, unspecified
CPT/HCPCS: 75574; J3490; Q9967

== ENCOUNTER → 2022-08-28 | Outpatient (CLI) | payer OTHER, MEDICARE ==
[~2022-08-28] MED LIST changes: -IOHEXOL 350 MG/ML 100ML INFUS..BTL IV ONE; -METOPROLOL TARTRATE 1 MG/ML 5ML VIAL IV ONE
== END | disposition home or self-care (01) ==
LOC: SHCH 07:50
PROVIDERS: ATTEND Student in an Organized Health Care Education/Training Program
DX: R07.9 Chest pain, unspecified (principal)
CPT/HCPCS: 93306

== ENCOUNTER → 2022-11-09 | Outpatient (CLI) | payer OTHER, MEDICARE ==
[2022-11-09 17:34] LABS: THYROID STIMULATING HORMONE 0.48 uIU/mL (0.36-3.74)
== END | disposition home or self-care (01) ==
LOC: LAB 15:07
PROVIDERS: ATTEND Student in an Organized Health Care Education/Training Program
DX: R00.2 Palpitations (principal)
CPT/HCPCS: 36415; 84439; 84443

== ENCOUNTER 2022-11-25 17:23 | Emergency (ER) | payer OTHER, MEDICARE ==
[~2022-11-25] VITALS: Ht 147.3 cm; Wt 48.1 kg
[2022-11-25 19:42] LABS: BASOPHILS % (AUTO) 0.4 % (0.0-5.0); EOSINOPHILS % (AUTO) 0.9 % (0.0-8.0); HEMATOCRIT 41.1 % (36-48); LYMPHOCYTES % (AUTO) 45.9 % (21.0-51.0); MEAN CORPUSCULAR HEMOGLOBIN 33.1 pg (27.0-33.0); MEAN CORPUSCULAR HGB CONC 34.1 g/dL (32.0-36.0); MEAN CORPUSCULAR VOLUME 97.2 fL (79-99); MONOCYTES % (AUTO) 9.2 % (3.0-13.0); NEUTROPHILS % (AUTO) 43.2 % (40.0-77.0); PLATELET COUNT (AUTO) 342 K/uL (130-400); RED BLOOD CELL COUNT(AUTO) 4.23 MIL/uL (4.00-5.50); RED CELL DISTRIBUTION WIDTH 14.3 % (11.0-15.5); WHITE BLOOD COUNT (AUTO) 11.3 K/uL (4.8-10.8)
[2022-11-25 20:12] LABS: CREATININE 0.9 mg/dL (0.5-1.5); POTASSIUM 5.4 mmol/L (3.5-5.1)
[2022-11-25 20:28] LABS: ALBUMIN 4.1 g/dL (3.5-5.0); TOTAL PROTEIN, SERUM 8.8 g/dL (6.0-8.3)
[2022-11-25 20:59] LABS: APPEARANCE,URINE CLEAR (CLEAR); BILIRUBIN,URINE NEGATIVE (NEGATIVE); COLOR,URINE LIGHT-YELLOW (YELLOW); GLUCOSE, URINE (UA) >=1000 mg/dL (NEGATIVE); KETONES,URINE NEGATIVE (NEGATIVE); LEUKOCYTE ESTERASE ,URINE NEGATIVE Leu/uL (NEGATIVE); NITRATE,URINE NEGATIVE (NEGATIVE); OCCULT BLOOD,URINE NEGATIVE (NEGATIVE); PH,URINE 6.5 (5.0-8.0); PROTEIN,URINE NEGATIVE (NEGATIVE); UROBILINOGEN,URINE 3 mg/dL (0.2-1.0)
[2022-11-25 21:04] LABS: BACTERIA,URINE FEW /HPF (None Seen); SQUAMOUS EPITHELIAL CELL,UR FEW /HPF (0-2)
[2022-11-25] MEDS ORDERED: KAYEXALATE 15GM/60ML PO ONE (21:30)
[2022-11-25] MEDS ORDERED: CALCIUM GLUC 1GM/10ML VIAL ONE (21:46)
[2022-11-25] MEDS ORDERED: DEXTROSE 50%-WATER 50 ML DISP.SYRIN IV ONE (21:46)
[2022-11-25] MEDS ORDERED: INSULIN HUMULIN R 100 UNIT/ML 3ML ONE (21:47)
[2022-11-25] MEDS ORDERED: CALCIUM GLUC 1GM 1 GM in 0.9%NACL 100ML 100 ML IV ONE (22:00)
[2022-11-25] MEDS ORDERED: DEXTROSE 50%-WATER 25 GM/50 ML VIAL IV ONE (22:00)
[2022-11-25] MEDS ORDERED: ALBUTEROL 0.083% 2.5 MG/3 ML INH IH SCH (22:00)
[2022-11-25] MEDS ORDERED: INSULIN HUMULIN R 100 UNIT/ML 3ML IV ONE (22:00)
[2022-11-25] MEDS ORDERED: ONDANSETRON 4MG INJ ONE (22:05)
[2022-11-25] MEDS ORDERED: ONDANSETRON 4MG INJ IVP ONE (22:30)
[2022-11-25] MEDS ORDERED: ACETAMINOPHEN 500 MG TABLET ONE (22:44)
[2022-11-25 23:41] VITALS: BP 142/68
== END 2022-11-25 23:49 | disposition home or self-care (01) ==
LOC: EDH 17:23
DX: E87.5 Hyperkalemia (principal); I10 Essential (primary) hypertension; E11.9 Type 2 diabetes mellitus without complications; Z79.899 Other long term (current) drug therapy; Z90.411 Acquired partial absence of pancreas; Z98.890 Other specified postprocedural states
CPT/HCPCS: 99285; 84484; 80053; 83690; 85025; 82948; 81001; 36415; 71045; 96365; 96375; 93005; 94640; J7070 ×2; J0610 ×2; J2405; J1815